=== PATIENT | male | born 1945 | race Caucasian/White ===

== ENCOUNTER → 2016-09-22 | Outpatient (REF) | payer MEDICARE, BC ==
[2016-09-22 11:49] LABS: INR 4.05
== END ==
LOC: M LABDRAWC 11:20
PROVIDERS: ATTEND Internal Medicine Cardiovascular Disease
DX: Z51.81 Encounter for therapeutic drug level monitoring (principal); Z79.01 Long term (current) use of anticoagulants; I48.91 Unspecified atrial fibrillation

== ENCOUNTER → 2016-09-29 | Outpatient (REF) | payer MEDICARE, BC ==
[2016-09-29 11:55] LABS: INR 3.37
== END ==
LOC: M SFHCCLAY 08:17
PROVIDERS: ATTEND Nurse Practitioner Family
DX: I82.409 Acute embolism and thrombosis of unspecified deep veins of unspecified lower extremity (principal)

== ENCOUNTER → 2016-10-13 | Outpatient (REF) | payer MEDICARE, BC ==
[2016-10-13 12:01] LABS: INR 3.25
== END ==
LOC: M SFHCCLAY 08:07
PROVIDERS: ATTEND Nurse Practitioner Family
DX: I26.99 Other pulmonary embolism without acute cor pulmonale (principal)

== ENCOUNTER → 2016-10-27 | Outpatient (REF) | payer MEDICARE, BC ==
[2016-10-27 11:19] LABS: INR 3.08
== END ==
LOC: M SFHCCLAY 08:49
PROVIDERS: ATTEND Nurse Practitioner Family
DX: I26.99 Other pulmonary embolism without acute cor pulmonale (principal); Z79.01 Long term (current) use of anticoagulants

== ENCOUNTER → 2016-11-16 | Outpatient (REF) | payer MEDICARE, BC ==
[2016-11-16 12:28] LABS: INR 2.61
== END ==
LOC: M SFHCCLAY 08:14
PROVIDERS: ATTEND Nurse Practitioner Family
DX: I82.409 Acute embolism and thrombosis of unspecified deep veins of unspecified lower extremity (principal)

== ENCOUNTER → 2016-11-30 | Outpatient (REF) | payer MEDICARE, BC ==
[2016-11-30 11:32] LABS: MEAN CORPUSCULAR HEMOGLOBIN 31.8 pg (27.0-33.0); MEAN CORPUSCULAR HGB CONC 33.7 g/dl (32.0-36.5); MEAN CORPUSCULAR VOLUME 94.3 fl (80.0-96.0); RED CELL DISTRIBUTION WIDTH 12.2 % (11.5-14.5)
[2016-11-30 11:39] LABS: INR 3.4
[2016-11-30 12:12] LABS: ALBUMIN 3.9 GM/DL (3.2-5.2); ALBUMIN/GLOBULIN RATIO 1.22 (1.00-1.93); ALKALINE PHOSPHATASE 74 U/L (45-117); ALT/SGPT 26 U/L (12-78); ANION GAP 7 MEQ/L (8-16); AST/SGOT 23 U/L (15-37); BILIRUBIN,TOTAL 0.9 MG/DL (0.2-1.0); BLOOD UREA NITROGEN 18 MG/DL (7-18); CALCIUM LEVEL 8.6 MG/DL (8.8-10.2); CARBON DIOXIDE LEVEL 26 MEQ/L (21-32); CHLORIDE LEVEL 110 MEQ/L (98-107); CHOLESTEROL LEVEL 186 MG/DL (<200); CREATININE FOR GFR 1.26 MG/DL (0.70-1.30); GLOMERULAR FILTRATION RATE > 60.0 (>42); GLUCOSE, FASTING 120 MG/DL (83-110); POTASSIUM SERUM 4.3 MEQ/L (3.5-5.1); SODIUM LEVEL 143 MEQ/L (136-145); TOTAL PROTEIN 7.1 GM/DL (6.4-8.2); TRIGLYCERIDES LEVEL 154 MG/DL (<150)
== END ==
LOC: M SFHCCLAY 08:58
PROVIDERS: ATTEND Nurse Practitioner Family
DX: K21.9 Gastro-esophageal reflux disease without esophagitis (principal); I10 Essential (primary) hypertension; E78.5 Hyperlipidemia, unspecified; I26.99 Other pulmonary embolism without acute cor pulmonale

== ENCOUNTER → 2016-12-14 | Outpatient (REF) | payer MEDICARE, BC ==
[2016-12-14 12:17] LABS: INR 1.76
== END ==
LOC: M SFHCCLAY 07:25
PROVIDERS: ATTEND Nurse Practitioner Family
DX: I26.99 Other pulmonary embolism without acute cor pulmonale (principal)

== ENCOUNTER → 2016-12-22 | Outpatient (REF) | payer MEDICARE, BC ==
[2016-12-22 11:59] LABS: INR 1.92
== END ==
LOC: M SFHCCLAY 07:39
PROVIDERS: ATTEND Nurse Practitioner Family
DX: I26.99 Other pulmonary embolism without acute cor pulmonale (principal); Z79.01 Long term (current) use of anticoagulants

== ENCOUNTER → 2017-01-05 | Outpatient (REF) | payer MEDICARE, BC ==
[2017-01-05 12:08] LABS: INR 2.3
== END ==
LOC: M SFHCCLAY 08:35
PROVIDERS: ATTEND Nurse Practitioner Family
DX: I26.99 Other pulmonary embolism without acute cor pulmonale (principal)

== ENCOUNTER → 2017-10-12 | Outpatient (REF) | payer MEDICARE, BC ==
[2017-10-12 12:20] LABS: INR 1.59; PROTHROMBIN TIME 19.2 SECONDS (12.1-14.4)
== END ==
LOC: M SFHCCLAY 09:25
DX: Z79.01 Long term (current) use of anticoagulants (principal)
CPT/HCPCS: 85610

== ENCOUNTER → 2017-10-20 | Outpatient (REF) | payer MEDICARE, BC ==
[2017-10-20 11:50] LABS: INR 1.63; PROTHROMBIN TIME 19.6 SECONDS (12.1-14.4)
== END ==
LOC: M SFHCCLAY 09:45
DX: Z51.81 Encounter for therapeutic drug level monitoring (principal); Z79.01 Long term (current) use of anticoagulants
CPT/HCPCS: 85610

== ENCOUNTER → 2017-10-28 | Outpatient (REF) | payer MEDICARE, BC ==
[2017-10-28 11:50] LABS: PROTHROMBIN TIME 26.6 SECONDS (12.1-14.4)
== END ==
LOC: M SFHCCLAY 08:30
DX: I26.99 Other pulmonary embolism without acute cor pulmonale (principal); I82.409 Acute embolism and thrombosis of unspecified deep veins of unspecified lower extremity; Z79.01 Long term (current) use of anticoagulants
CPT/HCPCS: 85610

== ENCOUNTER → 2017-11-10 | Outpatient (REF) | payer MEDICARE, BC ==
[2017-11-10 11:40] LABS: INR 1.94; PROTHROMBIN TIME 22.5 SECONDS (12.1-14.4)
== END ==
LOC: M SFHCCLAY 09:10
DX: Z51.81 Encounter for therapeutic drug level monitoring (principal); Z79.01 Long term (current) use of anticoagulants
CPT/HCPCS: 85610

== ENCOUNTER → 2017-11-17 | Outpatient (REF) | payer MEDICARE, BC ==
[2017-11-17 11:59] LABS: INR 2.17; PROTHROMBIN TIME 24.6 SECONDS (12.1-14.4)
== END ==
LOC: M SFHCCLAY 09:08
DX: Z79.01 Long term (current) use of anticoagulants (principal)
CPT/HCPCS: 85610

== ENCOUNTER → 2017-11-24 | Outpatient (REF) | payer MEDICARE, BC ==
[2017-11-24 12:25] LABS: INR 2.02; PROTHROMBIN TIME 23.3 SECONDS (12.1-14.4)
== END ==
LOC: M SFHCCLAY 08:34
DX: Z79.01 Long term (current) use of anticoagulants (principal)
CPT/HCPCS: 85610

== ENCOUNTER → 2017-12-08 | Outpatient (REF) | payer MEDICARE, BC ==
[2017-12-08 11:46] LABS: INR 2.15; PROTHROMBIN TIME 24.4 SECONDS (12.1-14.4)
== END ==
LOC: M SFHCCLAY 08:15
DX: Z79.01 Long term (current) use of anticoagulants (principal)
CPT/HCPCS: 85610

== ENCOUNTER → 2018-01-05 | Outpatient (REF) | payer MEDICARE, BC ==
[2018-01-05 11:56] LABS: PROTHROMBIN TIME 28.4 SECONDS (12.1-14.4)
== END ==
LOC: M SFHCCLAY 08:45
DX: Z79.01 Long term (current) use of anticoagulants (principal)
CPT/HCPCS: 85610

== ENCOUNTER → 2018-09-12 | Outpatient (REF) | payer MEDICARE, BC ==
[2018-09-12 11:23] LABS: HEMATOCRIT 42.7 % (42.0-52.0); HEMOGLOBIN 14.3 g/dl (13.5-17.5); MEAN CORPUSCULAR HGB CONC 33.5 g/dl (32.0-36.5); MEAN CORPUSCULAR VOLUME 92.4 fl (80.0-96.0); PLATELET COUNT, AUTOMATED 240 10^3/uL (150-450); RED BLOOD COUNT 4.62 10^6/uL (4.30-6.10); WHITE BLOOD COUNT 5.5 10^3/uL (4.0-10.0)
[2018-09-12 11:30] LABS: ALBUMIN 4.1 GM/DL (3.2-5.2); BILIRUBIN,TOTAL 0.8 MG/DL (0.2-1.0); CALCIUM LEVEL 9.3 MG/DL (8.8-10.2); CHOLESTEROL RISK RATIO 2.423 (<5); CREATININE FOR GFR 1.47 MG/DL (0.70-1.30); GLOMERULAR FILTRATION RATE 50.1 (>42); POTASSIUM SERUM 4.7 MEQ/L (3.5-5.1); TOTAL PROTEIN 7.4 GM/DL (6.4-8.2)
[2018-09-12 11:33] LABS: INR 1.71; PROTHROMBIN TIME 20.4 SECONDS (12.1-14.4)
== END ==
LOC: M SFHCCLAY 08:05
PROVIDERS: ATTEND Nurse Practitioner Family
DX: K21.9 Gastro-esophageal reflux disease without esophagitis (principal); I10 Essential (primary) hypertension; E78.5 Hyperlipidemia, unspecified; I82.409 Acute embolism and thrombosis of unspecified deep veins of unspecified lower extremity

== ENCOUNTER → 2018-10-03 | Outpatient (REF) | payer MEDICARE, BC ==
[2018-10-03 12:15] LABS: INR 2.45; PROTHROMBIN TIME 27.1 SECONDS (12.1-14.4)
== END ==
LOC: M SFHCCLAY 08:04
PROVIDERS: ATTEND Nurse Practitioner Family
DX: Z51.81 Encounter for therapeutic drug level monitoring (principal); Z79.01 Long term (current) use of anticoagulants; I82.409 Acute embolism and thrombosis of unspecified deep veins of unspecified lower extremity; I26.99 Other pulmonary embolism without acute cor pulmonale

== ENCOUNTER → 2018-10-10 | Outpatient (REF) | payer MEDICARE, BC ==
[2018-10-10 12:44] LABS: CHOLESTEROL RISK RATIO 2.137 (<5)
[2018-10-10 14:23] LABS: HEMOGLOBIN A1c 6.3 %
== END ==
LOC: M SFHCCLAY 07:40
PROVIDERS: ATTEND Nurse Practitioner Family
DX: R73.9 Hyperglycemia, unspecified (principal); E78.5 Hyperlipidemia, unspecified

== ENCOUNTER → 2018-10-11 | Outpatient (REF) | payer MEDICARE, BC ==
[2018-10-11 11:47] LABS: INR 2.81; PROTHROMBIN TIME 29.4 SECONDS (11.8-14.0)
== END ==
LOC: M SFHCCLAY 08:30
PROVIDERS: ATTEND Nurse Practitioner Family
DX: Z79.01 Long term (current) use of anticoagulants (principal); I82.409 Acute embolism and thrombosis of unspecified deep veins of unspecified lower extremity; I26.99 Other pulmonary embolism without acute cor pulmonale

== ENCOUNTER → 2018-10-25 | Outpatient (REF) | payer MEDICARE, BC ==
[2018-10-25 11:49] LABS: INR 3.11
== END ==
LOC: M SFHCCLAY 08:41
PROVIDERS: ATTEND Nurse Practitioner Family
DX: Z79.01 Long term (current) use of anticoagulants (principal); I82.409 Acute embolism and thrombosis of unspecified deep veins of unspecified lower extremity; I26.99 Other pulmonary embolism without acute cor pulmonale

== ENCOUNTER → 2018-11-07 | Outpatient (REF) | payer MEDICARE, BC ==
[2018-11-07 12:36] LABS: INR 3.21; PROTHROMBIN TIME 32.8 SECONDS (11.8-14.0)
== END ==
LOC: M SFHCCLAY 08:29
PROVIDERS: ATTEND Nurse Practitioner Family
DX: Z79.01 Long term (current) use of anticoagulants (principal); I82.409 Acute embolism and thrombosis of unspecified deep veins of unspecified lower extremity; I26.99 Other pulmonary embolism without acute cor pulmonale

== ENCOUNTER → 2018-11-21 | Outpatient (REF) | payer MEDICARE, BC ==
[2018-11-21 13:19] LABS: INR 3.72; PROTHROMBIN TIME 36.9 SECONDS (11.8-14.0)
== END ==
LOC: M SFHCCLAY 07:59
PROVIDERS: ATTEND Nurse Practitioner Family
DX: Z79.01 Long term (current) use of anticoagulants (principal); I82.409 Acute embolism and thrombosis of unspecified deep veins of unspecified lower extremity; I26.99 Other pulmonary embolism without acute cor pulmonale

== ENCOUNTER → 2018-12-05 | Outpatient (REF) | payer MEDICARE, BC ==
[2018-12-05 11:58] LABS: INR 3.33; PROTHROMBIN TIME 33.8 SECONDS (11.8-14.0)
== END ==
LOC: M SFHCCLAY 08:36
PROVIDERS: ATTEND Nurse Practitioner Family
DX: Z79.01 Long term (current) use of anticoagulants (principal); I82.409 Acute embolism and thrombosis of unspecified deep veins of unspecified lower extremity; I26.99 Other pulmonary embolism without acute cor pulmonale

== ENCOUNTER → 2018-12-19 | Outpatient (REF) | payer MEDICARE, BC ==
[2018-12-19 12:51] LABS: INR 2.56; PROTHROMBIN TIME 27.4 SECONDS (11.8-14.0)
== END ==
LOC: M SFHCCLAY 08:13
PROVIDERS: ATTEND Nurse Practitioner Family
DX: Z79.01 Long term (current) use of anticoagulants (principal); I82.409 Acute embolism and thrombosis of unspecified deep veins of unspecified lower extremity; I26.99 Other pulmonary embolism without acute cor pulmonale

== ENCOUNTER → 2018-12-29 | Outpatient (REF) | payer MEDICARE, BC ==
[2018-12-29 11:56] LABS: CHOLESTEROL RISK RATIO 3.095 (<5)
[2018-12-29 14:24] LABS: HEMOGLOBIN A1c 5.9 %
== END ==
LOC: M SFHCCLAY 08:26
PROVIDERS: ATTEND Nurse Practitioner Family
DX: E78.5 Hyperlipidemia, unspecified (principal); R73.9 Hyperglycemia, unspecified

== ENCOUNTER → 2020-01-07 | Outpatient (REF) | payer MEDICARE, BC ==
[2020-01-07 11:50] LABS: HEMATOCRIT 43.7 % (42.0-52.0); HEMOGLOBIN 14.5 g/dl (13.5-17.5); MEAN CORPUSCULAR HEMOGLOBIN 31.5 pg (27.0-33.0); MEAN CORPUSCULAR HGB CONC 33.2 g/dl (32.0-36.5); PLATELET COUNT, AUTOMATED 191 10^3/uL (150-450); WHITE BLOOD COUNT 3.8 10^3/uL (4.0-10.0)
[2020-01-07 12:19] LABS: ALBUMIN 3.8 GM/DL (3.2-5.2); BILIRUBIN,TOTAL 0.9 MG/DL (0.2-1.0); CALCIUM LEVEL 9.3 MG/DL (8.8-10.2); CHOLESTEROL RISK RATIO 1.933 (<5); CREATININE FOR GFR 1.44 MG/DL (0.70-1.30); GLOMERULAR FILTRATION RATE 51.2 (>42); POTASSIUM SERUM 4.9 MEQ/L (3.5-5.1); TOTAL PROTEIN 6.9 GM/DL (6.4-8.2)
== END ==
LOC: M SFHCCLAY 11:15
PROVIDERS: ATTEND Nurse Practitioner Family
DX: I21.3 ST elevation (STEMI) myocardial infarction of unspecified site (principal); E78.5 Hyperlipidemia, unspecified; I82.409 Acute embolism and thrombosis of unspecified deep veins of unspecified lower extremity; Z51.81 Encounter for therapeutic drug level monitoring; I26.99 Other pulmonary embolism without acute cor pulmonale

== ENCOUNTER → 2020-01-10 | Outpatient (REF) | payer MEDICARE, BC ==
[2020-01-10 12:45] LABS: INR 1.87; PROTHROMBIN TIME 21.9 SECONDS (12.5-14.3)
== END ==
LOC: M LABDRAWC 11:23
PROVIDERS: ATTEND Nurse Practitioner Family
DX: I21.3 ST elevation (STEMI) myocardial infarction of unspecified site (principal); I82.409 Acute embolism and thrombosis of unspecified deep veins of unspecified lower extremity; I26.99 Other pulmonary embolism without acute cor pulmonale; Z51.81 Encounter for therapeutic drug level monitoring
CPT/HCPCS: 36415; 85610; G0463

== ENCOUNTER → 2020-10-09 | Outpatient (REF) | payer MEDICARE, BC ==
[2020-10-09 12:16] LABS: INR 3.06; PROTHROMBIN TIME 32.3 SECONDS (12.5-14.3)
== END ==
LOC: M SFHCCLAY 08:17
PROVIDERS: ATTEND Nurse Practitioner Family
DX: I21.3 ST elevation (STEMI) myocardial infarction of unspecified site (principal); Z79.01 Long term (current) use of anticoagulants

== ENCOUNTER → 2021-12-10 | Outpatient (REF) | payer MEDICARE, BC | LOC: M SFHCDERM 16:55 | PROVIDERS: ATTEND Physician Assistant | DX: L30.8 Other specified dermatitis (principal) ==

== ENCOUNTER → 2022-12-16 | Outpatient (CLI) | payer MEDICARE ==
[~2022-12-16] MED LIST: ALIR150P4 SQ; ATOR1TAB19 PO; BUSP10TA PO; CLOP75TA99 PO; ELIQ5TAB PO; METO25TA4 PO; PANT20TA6 PO; PEPC1TAB5 PO; SERT25TA85 PO; UBIQ200C3 PO; VITAMIN B 12 PO
== END ==
LOC: M CLY 10:07
PROVIDERS: ATTEND Nurse Practitioner Family
DX: R06.02 Shortness of breath (principal)

== ENCOUNTER 2022-12-23 12:35 | Observation (INO) | payer MEDICARE ==
[2022-12-23 14:43] LABS: BASO % 0.5 % (0.0-1.0); EOS # 0.1 10^3/uL (0.0-0.5); EOS % 1.2 % (0.0-3.0); HEMATOCRIT 39.9 % (42.0-52.0); HEMOGLOBIN 13.6 g/dl (13.5-17.5); LYMPH # 1.3 10^3/uL (1.5-5.0); LYMPH % 23.2 % (24.0-44.0); MEAN CORPUSCULAR HEMOGLOBIN 33.2 pg (27.0-33.0); MEAN CORPUSCULAR HGB CONC 34.1 g/dl (32.0-36.5); MEAN CORPUSCULAR VOLUME 97.3 fl (80.0-96.0); MONO # 0.6 10^3/uL (0.0-0.8); MONO % 11.1 % (2.0-8.0); NEUTROPHILS # 3.6 10^3/uL (1.5-8.5); NEUTROPHILS % 63.5 % (36.0-66.0); PLATELET COUNT, AUTOMATED 207 10^3/uL (150-450); WHITE BLOOD COUNT 5.7 10^3/uL (4.0-10.0)
[2022-12-23 14:56] LABS: INR 1.45; PROTHROMBIN TIME 17.3 SECONDS (12.5-14.5)
[2022-12-23 15:03] LABS: ALBUMIN 3.6 G/DL (3.2-5.2); ALKALINE PHOSPHATASE 63 U/L (46-116); ALT/SGPT 22 U/L (7.0-40); AST/SGOT 12 U/L (<34); BILIRUBIN,DIRECT 0.6 MG/DL (<0.4); BILIRUBIN,TOTAL 1.6 MG/DL (0.3-1.2); BLOOD UREA NITROGEN 20 MG/DL (9-23); CALCIUM LEVEL 9.1 MG/DL (8.3-10.6); CARBON DIOXIDE LEVEL 25 MMOL/L (20-31); CHLORIDE LEVEL 107 MMOL/L (98-107); CK-MB VALUE MASS < 1.0 NG/ML (<3.6); CPK CREATINE PHOSPHOKINASE 48 U/L (46-171); CREATININE FOR GFR 1.31 MG/DL (0.70-1.30); GLOMERULAR FILTRATION RATE 56.6 (>42); GLUCOSE, FASTING 96 MG/DL (74-106); MB/CK RELATIVE INDEX 2.08 (< OR =4); POTASSIUM SERUM 4.2 MMOL/L (3.5-5.1); SODIUM LEVEL 137 MMOL/L (136-145); TOTAL PROTEIN 6.7 G/DL (5.7-8.2)
[2022-12-23] MEDS ORDERED: ISOVUE-370 76% 100ML VIAL As Ordered ONE (15:15)
[2022-12-23 15:23] LABS: RSV AMPLIFICATION NEGATIVE (NEGATIVE)
[2022-12-23] MEDS ORDERED: NS 1,000 ML IV ONE (15:25)
[2022-12-23 16:31] LABS: CK-MB VALUE MASS < 1.0 NG/ML (<3.6); CPK CREATINE PHOSPHOKINASE 51 U/L (46-171); MB/CK RELATIVE INDEX 1.96 (< OR =4)
[2022-12-23] MEDS ORDERED: HEPARIN SOD (PORCINE) 5000UNITS/ML 1ML VIAL/SYRINGE SC SCH (18:25)
[2022-12-23] MEDS ORDERED: **hydrALAZINE HCL** 25 MG TAB PO PRN (18:35)
[2022-12-23 19:03] LABS: C REACTIVE PROTEIN QUANTITATIV < 0.40 MG/DL (<1.0)
[2022-12-23] MEDS ORDERED: UBIQ200C3 PO (19:15)
[2022-12-23] MEDS ORDERED: ALIR150P4 SQ (19:15)
[2022-12-23] MEDS ORDERED: ELIQ5TAB PO (19:15)
[2022-12-23] MEDS ORDERED: CLOP75TA99 PO (19:15)
[2022-12-23 19:17] LABS: PROCALCITONIN <0.04 ng/ml
[2022-12-23] MEDS ORDERED: METO25TA4 PO (19:17)
[2022-12-23] MEDS ORDERED: PANT20TA6 PO (19:19)
[2022-12-23] MEDS ORDERED: PEPC1TAB5 PO (19:21)
[2022-12-23] MEDS ORDERED: SERT25TA85 PO (19:23)
[2022-12-23] MEDS ORDERED: VITAMIN B 12 PO (19:25)
[2022-12-23] MEDS ORDERED: BUSP10TA PO (19:26)
[2022-12-23] MEDS ORDERED: ATOR1TAB19 PO (19:28)
[2022-12-23] MEDS ORDERED: HOME MED LIST COMPLETE! XX SCH (19:30)
[2022-12-23 20:27] LABS: FOLATE 9.68 NG/ML (>5.4)
[2022-12-23 20:28] LABS: VITAMIN B12 LEVEL 1253 PG/ML (211-911)
[2022-12-23] MEDS ORDERED: busPIRone 10 MG TAB PO SCH (21:00)
[2022-12-23] MEDS ORDERED: APIXABAN 5 MG TAB (ELIQUIS) PO SCH (21:00)
[2022-12-23 21:48] VITALS: BP 143/91; TEMP 98.1; O2SAT 97
[2022-12-24 06:33] VITALS: BP 147/99; TEMP 98.9; O2SAT 96
[2022-12-24 07:33] LABS: HEMATOCRIT 42.8 % (42.0-52.0); HEMOGLOBIN 14.5 g/dl (13.5-17.5); MEAN CORPUSCULAR HEMOGLOBIN 33.5 pg (27.0-33.0); MEAN CORPUSCULAR HGB CONC 33.9 g/dl (32.0-36.5); MEAN CORPUSCULAR VOLUME 98.8 fl (80.0-96.0); PLATELET COUNT, AUTOMATED 226 10^3/uL (150-450); RED BLOOD COUNT 4.33 10^6/uL (4.30-6.10); WHITE BLOOD COUNT 5.4 10^3/uL (4.0-10.0)
[2022-12-24 08:24] LABS: CALCIUM LEVEL 9.6 MG/DL (8.3-10.6); CREATININE FOR GFR 1.35 MG/DL (0.70-1.30); GLOMERULAR FILTRATION RATE 54.7 (>42); POTASSIUM SERUM 4.4 MMOL/L (3.5-5.1)
[2022-12-24] MEDS ORDERED: SERTRALINE HCL 25 MG TABLET PO SCH (09:00)
[2022-12-24] MEDS ORDERED: PANTOPRAZOLE 20 MG TAB PO SCH (09:00)
[2022-12-24] MEDS ORDERED: APIXABAN 5 MG TAB (ELIQUIS) PO SCH (09:00)
[2022-12-24] MEDS ORDERED: CLOPIDOGREL 75 MG TAB PO SCH (09:00)
[2022-12-24] MEDS ORDERED: METOPROLOL TART 25 MG TABLET PO SCH (09:00)
[2022-12-24 10:26] VITALS: BP 147/99
[2022-12-24 11:26] VITALS: BP 147/86
[2022-12-24 12:14] LABS: CHOLESTEROL RISK RATIO 2.78 (<5); HDL CHOLESTEROL 44.5 MG/DL (>40); LDL CHOLESTEROL 60.3 MG/DL (<100); NON-HDL-C 79.5 MG/DL
[2022-12-24] MEDS ORDERED: ATORVASTATIN 10 MG TAB PO SCH (21:00)
[2022-12-25] MEDS ORDERED: FAMOTIDINE 20 MG TAB PO SCH (09:00)
[2022-12-29 04:07] LABS: VITAMIN B1 LEVEL WHOLE BLOOD 87.9 nmol/L (66.5-200.0)
== END 2022-12-24 13:55 | disposition home or self-care (01) ==
LOC: M ED 12:35 → M ED INP 12:36 → M MS5PR 21:40
PROVIDERS: ADMIT Internal Medicine; ATTEND Internal Medicine
DX: R53.1 Weakness (principal); R41.3 Other amnesia; I12.9 Hypertensive chronic kidney disease with stage 1 through stage 4 chronic kidney disease, or unspecified chronic kidney disease; Z86.718 Personal history of other venous thrombosis and embolism; Z86.711 Personal history of pulmonary embolism; Z85.038 Personal history of other malignant neoplasm of large intestine; I25.2 Old myocardial infarction; Z98.61 Coronary angioplasty status; Z79.01 Long term (current) use of anticoagulants; I48.91 Unspecified atrial fibrillation; E78.5 Hyperlipidemia, unspecified; Z86.73 Personal history of transient ischemic attack (TIA), and cerebral infarction without residual deficits; G47.33 Obstructive sleep apnea (adult) (pediatric); Z79.899 Other long term (current) drug therapy; R91.1 Solitary pulmonary nodule; N18.9 Chronic kidney disease, unspecified
CPT/HCPCS: 36415; 70450; 70551; 71046; 71275; 80048; 80061; 80076; 81001; 82140; 82525; 82550; 82553; 82607; 82746; 84145; 84425; 84443; 84484; 85025; 85027; 85610; 86140; 86780; 87631; 93005; 93041; 94760; 96374; 99285; G0378; Q9967

== ENCOUNTER → 2024-12-18 | Outpatient (REF) | payer MEDICARE ==
[2024-12-18 11:54] LABS: INR 1.78
== END ==
LOC: M SFHCCLAY 09:16
PROVIDERS: ATTEND Nurse Practitioner Family
DX: Z86.711 Personal history of pulmonary embolism (principal)